=== PATIENT | female | born 1960 | race Asian ===

== ENCOUNTER → 2017-04-28 | Outpatient (CLI) | payer BC, OTHER ==
[~2017-04-28] VITALS: Ht 157.5 cm; Wt 72.6 kg
[~2017-04-28] MED LIST: CLARITIN,ALAVAR10 MG PO; ENTECAVIR0.5 MG PO; FLEXERIL10 MG PO; FLONASE16 G1 BOTH NARES; GUAIFENESIN600 M1 PO; NAPROSYN500 MG PO; NO HOME MEDS; PHENERGAN DM SYR1 ML PO; TESSALON PERLE100 MG PO; VITAMIN E400 UNIT PO
== END | disposition home or self-care (01) ==
LOC: AMB 03-13 08:30
PROC: 0DJD8ZZ Inspection of Lower Intestinal Tract, Via Natural or Artificial Opening Endoscopic (ICD-10-PCS; principal; 2017-04-28)
DX: Z12.11 Encounter for screening for malignant neoplasm of colon (principal); K64.8 Other hemorrhoids